=== PATIENT | female | born 1960 | race Caucasian/White ===

== ENCOUNTER 2018-09-05 15:27 | Observation (INO) | payer OTHER ==
[2018-09-05] MEDS ORDERED: HYDROCODONE/APAP (5/325) TAB PO (17:00)
[2018-09-05] MEDS ORDERED: morphine 2 MG INJ IV (17:00)
[2018-09-05] MEDS ORDERED: ONDANSETRON 4 MG INJ IV (17:00)
[2018-09-05] MEDS ORDERED: ACETAMINOPHEN 325 MG TAB PO (17:00)
[2018-09-05] MEDS ORDERED: DOCUSATE SODIUM 100 MG CAP PO (17:00)
[2018-09-05] MEDS ORDERED: NITROGLYCERIN (SL) 0.4 MG TAB SL (17:00)
[2018-09-05 20:30] LABS: TROPONIN-I < 0.012 ng/ml (0.000-0.120)
[2018-09-05] MEDS: LORAZEPAM 1 MG TAB PO (20:46)
[2018-09-05] MEDS: NACL 0.9% 3 ML SYG IV (20:49)
[2018-09-05] MEDS: ZOLPIDEM 5 MG TAB PO (22:20)
[2018-09-06 06:31] LABS: ADD MAN DIFF? NO
[2018-09-06 06:39] LABS: BASOPHILS % 0.4 % (0.0-2.0); EOSINOPHILS # 0.1 10^3/ul (0.0-0.5); EOSINOPHILS % 2.6 % (0.0-7.0); HEMATOCRIT 41.6 % (37.0-47.0); HEMOGLOBIN 13.7 g/dl (12.0-16.0); LYMPHOCYTES # 1.2 10^3/ul (0.8-2.9); LYMPHOCYTES % 24.7 % (15.0-51.0); MEAN CORPUSCULAR HEMOGLOBIN 29.2 pg (29.0-33.0); MEAN CORPUSCULAR HGB CONC 32.9 g/dl (32.0-37.0); MEAN CORPUSCULAR VOLUME 88.7 fl (82.0-101.0); MEAN PLATELET VOLUME 10.1 fl (7.4-10.4); MONOCYTE # 0.4 10^3/ul (0.3-0.9); MONOCYTES % 8.5 % (0.0-11.0); NEUTROPHIL # 3.2 10^3/ul (1.6-7.5); NEUTROPHILS % 63.4 % (39.0-77.0); PLATELET COUNT 323 10^3/UL (140-415); RED BLOOD COUNT 4.69 10^6/ul (4.20-5.40); RED CELL DISTRIBUTION WIDTH 12.5 % (11.5-14.5)
[2018-09-06 07:23] LABS: TROPONIN-I < 0.012 ng/ml (0.000-0.120)
[2018-09-06 07:26] LABS: FREE THYROXINE INDEX (Calc) 2.26 ug/ml (0.65-3.89); T3 UPTAKE 35.3 % (23.5-40.5); T4 (THYROXINE) 6.4 ug/dl (5.5-11.0)
[2018-09-06 07:36] LABS: ANION GAP 9 (5-13); BLOOD UREA NITROGEN 12 mg/dl (7-20); CALCIUM 9.6 mg/dl (8.4-10.2); CARBON DIOXIDE 25 mmol/L (21-31); CHLORIDE 107 mmol/L (97-110); CHOL/HDL RATIO 2.9 RATIO; CHOLESTEROL 188 mg/dl (100-200); CREATININE 0.68 mg/dl (0.44-1.00); Estimated GFR > 60 mL/min (>60); GLUCOSE 110 mg/dl (70-220); HDL CHOLESTEROL 64 mg/dl (37-92); LDL CHOLESTEROL,CALCULATED 95 mg/dl; MAGNESIUM 2.3 mg/dl (1.7-2.5); PHOSPHORUS 4.3 mg/dl (2.5-4.9); POTASSIUM 4.2 mmol/L (3.5-5.1); SODIUM 141 mmol/L (135-144); TRIGLYCERIDES 143 mg/dl (0-149)
[2018-09-06] MEDS ORDERED: ENOXAPARIN 40 MG/0.4 ML SYG SC (09:00)
[2018-09-07] MEDS ORDERED: ASPIRIN 81 MG TAB PO (09:00)
== END 2018-09-06 17:29 | disposition home or self-care (01) ==
LOC: TEL 15:27
PROVIDERS: Internal Medicine
DX: F41.0 Panic disorder [episodic paroxysmal anxiety] (principal); R07.89 Other chest pain; I50.9 Heart failure, unspecified; G47.00 Insomnia, unspecified; Z79.82 Long term (current) use of aspirin
CPT/HCPCS: 80048; 80061; 83036; 83735; 84100; 84436; 84479; 84484; 85025; 93306; 99217; G0378

== ENCOUNTER 2018-09-21 06:13 | Observation (INO) | payer OTHER ==
[2018-09-21] MEDS ORDERED: morphine 2 MG INJ IV (09:00)
[2018-09-21] MEDS ORDERED: NITROGLYCERIN (SL) 0.4 MG TAB SL (09:00)
[2018-09-21] MEDS ORDERED: ONDANSETRON 4 MG INJ IV (09:00)
[2018-09-21] MEDS ORDERED: NACL 0.9% 3 ML SYG IV (09:00)
[2018-09-21] MEDS: FAMOTIDINE 20 MG TAB PO ×2 (09:29→22:04)
[2018-09-21] MEDS: ASPIRIN 81 MG TAB PO (09:29)
[2018-09-21] MEDS: ENOXAPARIN 40 MG/0.4 ML SYG SC (09:52)
[2018-09-21 10:20] LABS: CREATINE KINASE 49 IU/L (23-200)
[2018-09-21 10:32] LABS: CK-MB 0.99 ng/ml (0.0-2.4); TROPONIN-I < 0.012 ng/ml (0.000-0.120)
[2018-09-21] MEDS: REGADENOSON 0.4 MG/5 ML SYG (14:10)
[2018-09-21] MEDS: ACETAMINOPHEN 325 MG TAB PO (15:04)
[2018-09-21 15:36] LABS: CREATINE KINASE 45 IU/L (23-200)
[2018-09-21 15:47] LABS: CK INDEX 1.9; CK-MB 0.87 ng/ml (0.0-2.4); TROPONIN-I < 0.012 ng/ml (0.000-0.120)
[2018-09-21] MEDS: BUSPIRONE 5 MG TAB PO (22:04)
[2018-09-21] MEDS: traZODone 50 MG TAB PO (22:04)
[2018-09-21] MEDS: LORAZEPAM 0.5 MG TAB PO (22:05)
[2018-09-22 05:25] LABS: ADD MAN DIFF? NO
[2018-09-22 05:32] LABS: BASOPHILS % 0.8 % (0.0-2.0); EOSINOPHILS # 0.1 10^3/ul (0.0-0.5); EOSINOPHILS % 1.2 % (0.0-7.0); HEMATOCRIT 40.6 % (37.0-47.0); HEMOGLOBIN 13.6 g/dl (12.0-16.0); LYMPHOCYTES # 1.3 10^3/ul (0.8-2.9); MEAN CORPUSCULAR HEMOGLOBIN 29.8 pg (29.0-33.0); MEAN CORPUSCULAR HGB CONC 33.5 g/dl (32.0-37.0); MEAN CORPUSCULAR VOLUME 88.8 fl (82.0-101.0); MEAN PLATELET VOLUME 9.9 fl (7.4-10.4); MONOCYTE # 0.4 10^3/ul (0.3-0.9); NEUTROPHIL # 3.2 10^3/ul (1.6-7.5); NEUTROPHILS % 63.8 % (39.0-77.0); PLATELET COUNT 323 10^3/UL (140-415); RED BLOOD COUNT 4.57 10^6/ul (4.20-5.40); RED CELL DISTRIBUTION WIDTH 12.3 % (11.5-14.5)
[2018-09-22 05:55] LABS: HEMOGLOBIN A1C 6.4 % (0-5.9)
[2018-09-22 05:57] LABS: ALANINE AMINOTRANSFERASE 20 IU/L (13-69); ALBUMIN 3.9 g/dl (3.3-4.9); ALKALINE PHOSPHATASE 60 IU/L (42-121); ANION GAP 10 (5-13); ASPARTATE AMINO TRANSFERASE 19 IU/L (15-46); BILIRUBIN,INDIRECT 0.6 mg/dl (0-1.1); BILIRUBIN,TOTAL 0.6 mg/dl (0.2-1.3); BLOOD UREA NITROGEN 11 mg/dl (7-20); CALCIUM 9.4 mg/dl (8.4-10.2); CARBON DIOXIDE 24 mmol/L (21-31); CHLORIDE 105 mmol/L (97-110); CHOL/HDL RATIO 3.7 RATIO; CHOLESTEROL 191 mg/dl (100-200); CREATININE 0.65 mg/dl (0.44-1.00); Estimated GFR > 60 mL/min (>60); GLUCOSE 133 mg/dl (70-220); HDL CHOLESTEROL 51 mg/dl (37-92); LDL CHOLESTEROL,CALCULATED 105 mg/dl; MAGNESIUM 2.2 mg/dl (1.7-2.5); PHOSPHORUS 4.8 mg/dl (2.5-4.9); POTASSIUM 3.9 mmol/L (3.5-5.1); SODIUM 139 mmol/L (135-144); TOTAL PROTEIN 6.9 g/dl (6.1-8.1); TRIGLYCERIDES 173 mg/dl (0-149)
[2018-09-22] MEDS: ASPIRIN 81 MG TAB PO (08:13)
[2018-09-22] MEDS: FAMOTIDINE 20 MG TAB PO (08:14)
[2018-09-22] MEDS: ENOXAPARIN 40 MG/0.4 ML SYG SC (08:17)
[2018-09-22] MEDS: BUSPIRONE 5 MG TAB PO (08:24)
[2018-09-22] MEDS: IBUPROFEN 400 MG TAB PO (10:09)
[2018-09-22] MEDS: DICLOFENAC SODIUM 1% GEL 100 GM TUBE TP (11:08)
== END 2018-09-22 15:53 | disposition home or self-care (01) ==
LOC: TEL 06:13 → 2NE 22:20
DX: R07.89 Other chest pain (principal); F41.0 Panic disorder [episodic paroxysmal anxiety]; I10 Essential (primary) hypertension; E78.5 Hyperlipidemia, unspecified; G47.00 Insomnia, unspecified; R73.03 Prediabetes
CPT/HCPCS: 71045; 78452; 80053; 80061; 82550; 82553; 83036; 83735; 84100; 84443; 84484; 85025; 93005; 93017; 93306; 99217; G0378